=== PATIENT | male | born 1955 | race Two or more races ===

== ENCOUNTER 2023-04-12 23:03 | Inpatient (IN) | payer OTHER ==
[~2023-04-12] VITALS: Ht 177.8 cm; Wt 54.0 kg
[2023-04-12 22:00] VITALS: BP 151/99
[2023-04-12] MEDS ORDERED: HEPARIN SODIUM (PORCINE) 5000 UNITS/ML 1ML VIAL IV ONE (23:45)
[2023-04-12] MEDS ORDERED: NITROGLYCERIN 0.4 MG SL TAB SL PRN (23:45)
[2023-04-12] MEDS ORDERED: ACETAMINOPHEN 325 MG TAB PO PRN (23:45)
[2023-04-12] MEDS ORDERED: MORPHINE SULFATE INJ 2 MG/ml SYRG IV PRN (23:45)
[2023-04-12] MEDS ORDERED: ONDANSETRON HCL 4 MG/2 ML VIAL IV PRN (23:45)
[2023-04-12] MEDS ORDERED: hydrALAZINE HCL 20 MG/ML VL IV PRN (23:45)
[2023-04-13] VITALS (9 sets, daily range): BP systolic 107–151; BP diastolic 78–99
[2023-04-13 00:46] LABS: Basophils # (auto) 0 10 ^3/uL (0-0.2); Eosinophils # (auto) 0 10 ^3/uL (0-0.8); Hemoglobin 8.2 g/dL (13.5-17.5); Lymphocytes # (auto) 0.5 10 ^3/uL (0.4-5.4); Lymphocytes % (auto) 5.9 % (10.0-50.0); Nucleated Red Blood Cells % 0.2 %; White Blood Cell 8.8 10^3/uL (4.4-10.8)
[2023-04-13 00:48] LABS: Basophils % (auto) 0.2 % (0.0-2.0); Eosinophils % (auto) 0.1 % (0.0-7.0); Hematocrit 26.8 % (41.0-53.0); Mean Corpuscular Hemoglobin 25.6 pg (28.0-32.0); Mean Corpuscular Hgb Conc. 30.7 g/dL (32.0-36.0); Mean Corpuscular Volume 83.4 fL (80.0-100.0); Monocytes # (auto) 0.5 10 ^3/uL (0-1.3); Monocytes % (auto) 5.8 % (0.0-12.0); Neutrophils # (auto) 7.7 10 ^3/uL (1.6-8.6); Red Blood Cells 3.21 10^6/uL (4.5-5.90); Red Cell Distribution Width 16.8 % (11.8-14.3)
[2023-04-13] MEDS ORDERED: HEPARIN DRIP/D5W 100UNITS/ML 250 ML IV SCH ×4 (01:00→21:30)
[2023-04-13 01:02] LABS: INR 1.49 (0.9-1.15); Partial Thromboplastin Time 32.2 SEC (24.5-34.5)
[2023-04-13] MEDS ORDERED: TRAZ-227 PO (03:23)
[2023-04-13] MEDS ORDERED: MET50T PO (03:23)
[2023-04-13] MEDS ORDERED: ATOR40TA52 PO (03:23)
[2023-04-13] MEDS ORDERED: SEVE800T10 PO (03:23)
[2023-04-13] MEDS ORDERED: ASPI-325 PO (03:23)
[2023-04-13 05:50] LABS: Potassium 5.2 mmol/L (3.5-5.1)
[2023-04-13 05:51] LABS: Basophils # (auto) 0.1 10 ^3/uL (0-0.2); Eosinophils # (auto) 0 10 ^3/uL (0-0.8); Lymphocytes # (auto) 1.2 10 ^3/uL (0.4-5.4); Lymphocytes % (auto) 12.1 % (10.0-50.0); Monocytes # (auto) 0.7 10 ^3/uL (0-1.3); Monocytes % (auto) 6.7 % (0.0-12.0); Nucleated Red Blood Cells % 0.2 %
[2023-04-13 05:54] LABS: Basophils % (auto) 0.6 % (0.0-2.0); Hematocrit 22.3 % (41.0-53.0); Hemoglobin 7.5 g/dL (13.5-17.5); Mean Corpuscular Hemoglobin 26.2 pg (28.0-32.0); Mean Corpuscular Hgb Conc. 33.5 g/dL (32.0-36.0); Mean Corpuscular Volume 78.1 fL (80.0-100.0); Neutrophils % (auto) 80.6 % (37.0-80.0); Red Blood Cells 2.85 10^6/uL (4.5-5.90); Red Cell Distribution Width 15.8 % (11.8-14.3); White Blood Cell 9.9 10^3/uL (4.4-10.8)
[2023-04-13 06:03] LABS: Albumin 2.6 g/dL (3.4-5.0); BUN/Creatinine Ratio 7.6 (10.0-20.0); Bilirubin, Total 0.6 mg/dL (0.2-1.0); Total Protein 6.4 g/dL (6.4-8.2)
[2023-04-13] MEDS ORDERED: ASPirin 325 MG TAB PO ONE (08:30)
[2023-04-13] MEDS ORDERED: ALBUTEROL SULF 2.5 MG/0.5ML(0.5%) NEB SOLN NEB PRN (08:30)
[2023-04-13 08:56] LABS: INR 1.41 (0.9-1.15); Partial Thromboplastin Time 46.7 SEC (24.5-34.5)
[2023-04-13] MEDS: HYDROcodone-ACET 5/325MG TAB PO PRN ×2 (09:46→19:40)
[2023-04-13] MEDS ORDERED: ASPirin 81 mg TAB PO SCH (10:00)
[2023-04-13] MEDS ORDERED: LORazepam 2MG/ML-1ML VIAL IV ONE (10:45)
[2023-04-13] MEDS ORDERED: EPOETIN ALFA-EPBX 10,000 UNIT/1ML VIAL IV ONE (14:00)
[2023-04-13 16:22] LABS: INR 1.48 (0.9-1.15); Partial Thromboplastin Time 41.9 SEC (24.5-34.5)
[2023-04-13] MEDS ORDERED: IOHEXOL 350 MG/ML 100ML IJ ONE (16:40)
[2023-04-13] MEDS ORDERED: ANGIOMAX 250 MG VIAL IV ONE (17:38)
[2023-04-13] MEDS ORDERED: SODIUM CHL 0.9% 0 ML ONE (17:38)
[2023-04-13] MEDS ORDERED: VERAPAMIL 2.5MG/ML INJ 2ML VIAL IV ONE (17:38)
[2023-04-13] MEDS ORDERED: PANTOPRAZOLE 40 MG TAB PO ONE (18:15)
[2023-04-13] MEDS ORDERED: IODIXANOL 320MG/ML 100ML BTL IV ONE (18:21)
[2023-04-13] MEDS: ATORVASTATIN 20 MG TAB PO SCH (23:07)
[2023-04-14] MEDS: HYDROcodone-ACET 5/325MG TAB PO PRN ×3 (00:17→16:44)
[2023-04-14 04:05] LABS: Basophils # (auto) 0.1 10 ^3/uL (0-0.2); Eosinophils # (auto) 0 10 ^3/uL (0-0.8); Eosinophils % (auto) 0.1 % (0.0-7.0); Hematocrit 25.8 % (41.0-53.0); Hemoglobin 8.5 g/dL (13.5-17.5); Lymphocytes # (auto) 1.2 10 ^3/uL (0.4-5.4); Mean Corpuscular Hemoglobin 26.5 pg (28.0-32.0); Mean Corpuscular Volume 80.5 fL (80.0-100.0); Monocytes # (auto) 0.7 10 ^3/uL (0-1.3); Monocytes % (auto) 8.8 % (0.0-12.0); Neutrophils # (auto) 5.8 10 ^3/uL (1.6-8.6); Neutrophils % (auto) 75.1 % (37.0-80.0); Nucleated Red Blood Cells % 0.2 %; Red Cell Distribution Width 16.5 % (11.8-14.3); White Blood Cell 7.7 10^3/uL (4.4-10.8)
[2023-04-14 04:15] LABS: Albumin 2.3 g/dL (3.4-5.0); BUN/Creatinine Ratio 7.4 (10.0-20.0); Calcium 6.9 mg/dL (8.5-10.1); Potassium 4.1 mmol/L (3.5-5.1)
[2023-04-14 04:17] LABS: Bilirubin, Total 0.7 mg/dL (0.2-1.0)
[2023-04-14 04:20] LABS: INR 1.44 (0.9-1.15)
[2023-04-14 04:37] LABS: Partial Thromboplastin Time 94.3 SEC (24.5-34.5)
[2023-04-14 05:00] VITALS: BP 140/95
[2023-04-14] MEDS ORDERED: HEPARIN DRIP/D5W 100UNITS/ML 250 ML IV SCH ×2 (05:38→20:15)
[2023-04-14 09:00] VITALS: BP 142/88
[2023-04-14] MEDS: ASPirin 81 mg TAB PO SCH (09:11)
[2023-04-14] MEDS: PANTOPRAZOLE 40 MG TAB PO SCH (09:11)
[2023-04-14] MEDS: LORazepam 2MG/ML-1ML VIAL IV PRN (09:12)
[2023-04-14] MEDS ORDERED: SODIUM CHL 0.9% 1000 ML BAG XX ONE (12:15)
[2023-04-14 12:42] LABS: INR 1.34 (0.9-1.15)
[2023-04-14 13:00] VITALS: BP 117/73
[2023-04-14 13:11] LABS: Partial Thromboplastin Time 72.1 SEC (24.5-34.5)
[2023-04-14 17:00] VITALS: BP 122/80
[2023-04-14 18:42] LABS: INR 1.28 (0.9-1.15)
[2023-04-14 18:59] LABS: Partial Thromboplastin Time 105.6 SEC (24.5-34.5)
[2023-04-14] MEDS: ATORVASTATIN 20 MG TAB PO SCH (21:20)
[2023-04-14 21:58] VITALS: BP 116/75
[2023-04-15] VITALS (7 sets, daily range): BP systolic 120–140; BP diastolic 81–94
[2023-04-15 02:56] LABS: INR 1.21 (0.9-1.15); Partial Thromboplastin Time 56.3 SEC (24.5-34.5)
[2023-04-15 05:29] LABS: Basophils # (auto) 0.2 10 ^3/uL (0-0.2); Eosinophils # (auto) 0.1 10 ^3/uL (0-0.8); Monocytes # (auto) 0.7 10 ^3/uL (0-1.3); Neutrophils % (auto) 72.9 % (37.0-80.0); Nucleated Red Blood Cells % 0.1 %; Red Blood Cells 3.27 10^6/uL (4.5-5.90)
[2023-04-15 05:31] LABS: Basophils % (auto) 2.1 % (0.0-2.0); Hematocrit 26.4 % (41.0-53.0); Hemoglobin 8.7 g/dL (13.5-17.5); Lymphocytes # (auto) 1.1 10 ^3/uL (0.4-5.4); Lymphocytes % (auto) 14.7 % (10.0-50.0); Mean Corpuscular Hemoglobin 26.5 pg (28.0-32.0); Mean Corpuscular Hgb Conc. 32.8 g/dL (32.0-36.0); Mean Corpuscular Volume 80.9 fL (80.0-100.0); Monocytes % (auto) 9.3 % (0.0-12.0); Neutrophils # (auto) 5.3 10 ^3/uL (1.6-8.6); Red Cell Distribution Width 17.6 % (11.8-14.3); White Blood Cell 7.3 10^3/uL (4.4-10.8)
[2023-04-15 05:45] LABS: Albumin 2.4 g/dL (3.4-5.0); Calcium 7.4 mg/dL (8.5-10.1); Potassium 4.5 mmol/L (3.5-5.1)
[2023-04-15 05:49] LABS: BUN/Creatinine Ratio 5.7 (10.0-20.0); Bilirubin, Total 0.6 mg/dL (0.2-1.0); Total Protein 6.4 g/dL (6.4-8.2)
[2023-04-15] MEDS ORDERED: HEPARIN DRIP/D5W 100UNITS/ML 250 ML IV SCH (09:15)
[2023-04-15] MEDS: ASPirin 81 mg TAB PO SCH (09:16)
[2023-04-15] MEDS: PANTOPRAZOLE 40 MG TAB PO SCH (09:16)
[2023-04-15] MEDS: LORazepam 2MG/ML-1ML VIAL IV PRN ×2 (11:23→18:20)
[2023-04-15] MEDS: ATORVASTATIN 20 MG TAB PO SCH (21:13)
[2023-04-16] MEDS: LORazepam 2MG/ML-1ML VIAL IV PRN ×2 (00:19→15:53)
[2023-04-16 05:00] VITALS: BP 128/90
[2023-04-16 06:01] LABS: Basophils # (auto) 0.1 10 ^3/uL (0-0.2); Eosinophils # (auto) 0.1 10 ^3/uL (0-0.8); Hemoglobin 8.6 g/dL (13.5-17.5); Lymphocytes # (auto) 1.4 10 ^3/uL (0.4-5.4); Monocytes # (auto) 0.8 10 ^3/uL (0-1.3); Red Blood Cells 3.22 10^6/uL (4.5-5.90)
[2023-04-16 06:03] LABS: Basophils % (auto) 1.1 % (0.0-2.0); Eosinophils % (auto) 1.2 % (0.0-7.0); Hematocrit 26.4 % (41.0-53.0); Lymphocytes % (auto) 19.9 % (10.0-50.0); Mean Corpuscular Hemoglobin 26.8 pg (28.0-32.0); Mean Corpuscular Hgb Conc. 32.6 g/dL (32.0-36.0); Mean Corpuscular Volume 82.2 fL (80.0-100.0); Monocytes % (auto) 11.3 % (0.0-12.0); Neutrophils # (auto) 4.7 10 ^3/uL (1.6-8.6); Neutrophils % (auto) 66.5 % (37.0-80.0); Nucleated Red Blood Cells % 0.2 %; Red Cell Distribution Width 17.9 % (11.8-14.3); White Blood Cell 7.1 10^3/uL (4.4-10.8)
[2023-04-16 06:06] LABS: Potassium 4.9 mmol/L (3.5-5.1)
[2023-04-16 06:17] LABS: Albumin 2.6 g/dL (3.4-5.0); BUN/Creatinine Ratio 6.6 (10.0-20.0); Bilirubin, Total 0.6 mg/dL (0.2-1.0); Calcium 7.3 mg/dL (8.5-10.1); Total Protein 6.6 g/dL (6.4-8.2)
[2023-04-16 08:44] VITALS: BP 121/66
[2023-04-16 09:00] VITALS: BP 121/66
[2023-04-16] MEDS: PANTOPRAZOLE 40 MG TAB PO SCH (09:59)
[2023-04-16] MEDS: ASPirin 81 mg TAB PO SCH (09:59)
[2023-04-16] MEDS ORDERED: SODIUM CHL 0.9% 1000 ML BAG XX ONE (12:00)
[2023-04-16 12:52] VITALS: BP 136/87
[2023-04-16 14:21] VITALS: BP 136/87
[2023-04-16 17:10] VITALS: BP 141/69
[2023-04-16] MEDS ORDERED: EPOETIN ALFA-EPBX 10,000 UNIT/1ML VIAL SC ONE (21:00)
== END 2023-04-16 21:37 | disposition short-term general hospital (02) | DRG 280 ==
LOC: UNDOADMIN 23:03 → EAST 23:03 → TELE-EAST 04-13 01:36
PROVIDERS: ADMIT Hospitalist; ATTEND Hospitalist
PROC: 30233N1 Transfusion of Nonautologous Red Blood Cells into Peripheral Vein, Percutaneous Approach (ICD-10-PCS; principal; 2023-04-13)
PROC: 5A1D70Z Performance of Urinary Filtration, Intermittent, Less than 6 Hours Per Day (ICD-10-PCS; 2023-04-13)
PROC: 4A023N7 Measurement of Cardiac Sampling and Pressure, Left Heart, Percutaneous Approach (ICD-10-PCS; 2023-04-13)
PROC: B211YZZ Fluoroscopy of Multiple Coronary Arteries using Other Contrast (ICD-10-PCS; 2023-04-13)
PROC: B215YZZ Fluoroscopy of Left Heart using Other Contrast (ICD-10-PCS; 2023-04-13)
PROC: 5A1D70Z Performance of Urinary Filtration, Intermittent, Less than 6 Hours Per Day (ICD-10-PCS; 2023-04-14)
DX: I21.4 Non-ST elevation (NSTEMI) myocardial infarction (principal); I50.23 Acute on chronic systolic (congestive) heart failure; N18.6 End stage renal disease; I13.2 Hypertensive heart and chronic kidney disease with heart failure and with stage 5 chronic kidney disease, or end stage renal disease; J44.1 Chronic obstructive pulmonary disease with (acute) exacerbation; Z20.822 Contact with and (suspected) exposure to COVID-19; D64.9 Anemia, unspecified; I07.1 Rheumatic tricuspid insufficiency; D75.829 Heparin-induced thrombocytopenia, unspecified; E11.22 Type 2 diabetes mellitus with diabetic chronic kidney disease; E78.5 Hyperlipidemia, unspecified; I25.10 Atherosclerotic heart disease of native coronary artery without angina pectoris; T45.515A Adverse effect of anticoagulants, initial encounter; Y92.89 Other specified places as the place of occurrence of the external cause; Z75.1 Person awaiting admission to adequate facility elsewhere; Z79.82 Long term (current) use of aspirin; Z87.891 Personal history of nicotine dependence; Z95.1 Presence of aortocoronary bypass graft; Z99.2 Dependence on renal dialysis
CPT/HCPCS: 36415; 78582; 80053; 84484; 85025; 85610; 85730; 86850; 86900; 86901; 86920; 87340; 87426; 90935; 93005; 93306; 93458; G0378; J1642; J2405; Q9967